=== PATIENT | female | born 1970 | race African-American/Black ===

== ENCOUNTER 2019-03-05 04:10 | Emergency (ER) | payer BC ==
[~2019-03-05] VITALS: Ht 172.7 cm; Wt 106.1 kg
[2019-03-05 04:13] VITALS: Ht 172.7 cm; Wt 106.1 kg
[2019-03-05 05:32] LABS: BASOPHIL % 0.9 % (0-2); PLATELET COUNT 196 x10^3mcL (130-400); RED CELL DISTRIBUTION WIDTH 13.8 % (11.5-14.5)
[2019-03-05 05:40] LABS: CALCIUM 9.2 mg/dL (8.5-10.1); CHLORIDE SERUM 103 mmol/L (98-107); CREATININE SERUM 0.8 mg/dL (0.6-1.0); GFR1 > 60 mL/min; GLUCOSE SERUM 102 mg/dL (74-106); POTASSIUM SERUM 4.1 mmol/L (3.5-5.1); SODIUM SERUM 140 mmol/L (136-145)
[2019-03-05 05:44] LABS: ALBUMIN 3.9 g/dL (3.4-5.0); ALKALINE PHOSPHATASE 65 U/L (46-116); ALT/SGPT 91 U/L (14-59); AST/SGOT 78 U/L (15-37); BILIRUBIN TOTAL 0.71 mg/dL (0.20-1.00); TOTAL PROTEIN, SERUM 7.2 g/dL (6.4-8.2)
[2019-03-05 07:01] VITALS: BP 122/73
== END 2019-03-05 07:01 | disposition home or self-care (01) ==
LOC: ED 04:10
DX: M77.9 Enthesopathy, unspecified (principal); R07.89 Other chest pain
CPT/HCPCS: 36415; Q0092